=== PATIENT | female | born 1985 | race Caucasian/White ===

== ENCOUNTER 2016-06-19 18:37 | Emergency (ER) | payer OTHER ==
[~2016-06-19] VITALS: Ht 144.8 cm; Wt 56.7 kg
== END 2016-06-19 19:30 | disposition short-term general hospital (02) ==
LOC: ER 18:37
DX: G43.909 Migraine, unspecified, not intractable, without status migrainosus (principal); H57.12 Ocular pain, left eye
CPT/HCPCS: J1885; J2765